=== PATIENT | male | born 1960 | race Caucasian/White ===

== ENCOUNTER 2018-11-13 18:30 | Emergency (ER) | payer BC ==
[~2018-11-13] VITALS: Ht 177.8 cm; Wt 128.8 kg
[~2018-11-13 18:30] MED LIST: Augmentin 500-1 EACH PO; Flonase 0.05% N16 GM; PSEU120ER PO; SULTRIDS PO; ZESTRIL40 MG PO
[2018-11-13 18:56] LABS: BASOPHILS ABSOLUTE AUTO 0.03 K/mm3 (0.00-0.23); BASOPHILS PERCENT AUTO 0 % (0-2); EOSINOPHILS PERCENT AUTO 0 % (0-6); Hematocrit 52.1 % (37.0-53.0); Hemoglobin 18.4 g/dL (13.5-17.5); IMMATURE GRAN ABSOLUTE AUTO 0.03 K/mm3 (0.00-0.10); IMMATURE GRAN PERCENT AUTO 0 % (0-1); LYMPHOCYTES ABSOLUTE AUTO 0.94 K/mm3 (0.84-5.20); LYMPHOCYTES PERCENT AUTO 11 % (21-46); MONOCYTES ABSOLUTE AUTO 0.86 K/mm3 (0.16-1.47); MONOCYTES PERCENT AUTO 10 % (4-13); Mean Corpuscular HGB 30.5 pg (26.0-34.0); Mean Corpuscular HGB Conc 35.3 g/dL (31.5-36.5); Mean Corpuscular Volume 86 fL (80-100); Mean Platelet Volume 8.8 fL (9.1-12.4); NEUTROPHILS ABSOLUTE AUTO 6.79 K/mm3 (1.96-9.15); NEUTROPHILS PERCENT AUTO 79 % (41-73); Platelet Count 190 K/mm3 (150-400); RDW Coefficient Variation 11.9 % (11.7-14.2); RDW Standard Deviation 37.7 fL (35.1-46.3); Red Blood Cell Count 6.04 M/mm3 (4.30-5.90); White Blood Cell Count 8.65 K/mm3 (4.00-11.30)
[2018-11-13 19:16] LABS: Alanine Aminotransfer (ALT/SGP 71 U/L (12-78); Albumin, Blood 3.2 g/dL (3.4-5.0); Albumin/Globulin Ratio 0.8 (0.8-1.8); Alk Phos 159 U/L (50-136); Anion Gap 10 mmol/L (6-16); Aspartate Aminotrans (AST/SGOT 46 U/L (12-37); Bilirubin, Total 0.8 mg/dL (0.1-1.0); Blood Urea Nitrogen 10 mg/dL (8-24); Bun/Creatinine Ratio 10.4 (12.0-20.0); CO2, Blood 24 mmol/L (21-32); Calcium, Blood 9.3 mg/dL (8.5-10.1); Chloride, Blood 100 mmol/L (98-108); Creatinine, Blood 0.96 mg/dL (0.60-1.20); Globulin, Blood 4.2 g/dL (2.2-4.0); Glomerular Filtration Rate >60 (60-); Glucose, Blood 135 mg/dL (70-99); Potassium, Blood 3.8 mmol/L (3.5-5.5); Sodium, Blood 134 mmol/L (136-145); Total Protein, Blood 7.4 g/dL (6.4-8.2)
[2018-11-13] MEDS ORDERED: AMLO5 PO (19:43)
[2018-11-13] MEDS ORDERED: Toprol Xl50 MG PO (19:43)
[2018-11-13] MEDS ORDERED: Augmentin 875-1 EACH PO (20:17)
[2018-11-13] MEDS ORDERED: Norco 5-325 Ta1 EACH PO (20:17)
[2018-11-13] MEDS ORDERED: Naprosyn500 MG PO (20:17)
== END 2018-11-13 20:48 | disposition home or self-care (01) ==
LOC: ER 18:30
PROVIDERS: Emergency Medicine
DX: K57.32 Diverticulitis of large intestine without perforation or abscess without bleeding (principal); I10 Essential (primary) hypertension; E78.5 Hyperlipidemia, unspecified; E66.9 Obesity, unspecified
CPT/HCPCS: 36415; 71046; 74176; 80053; 83690; 85025; 93005; 93010; 99284-25; A9270

== ENCOUNTER → 2021-08-27 | Outpatient (CLI) | payer SELFPAY ==
[~2021-08-27] MED LIST changes: +ACET325 PO; +AMLO5 PO; +Augmentin 875-1 EACH PO; +COLE625 PO; +METFORMIN HCL500 M3 PO; +Naprosyn500 MG PO; +Norco 5-325 Ta1 EACH PO; +Toprol Xl50 MG PO; +XARELTO20 MG PO
== END ==
LOC: LAB 13:52 → LAB SHORT 13:52
DX: E11.9 Type 2 diabetes mellitus without complications (principal)
CPT/HCPCS: 82043

== ENCOUNTER 2021-09-12 14:24 | Inpatient (IN) | payer BC ==
[~2021-09-12] VITALS: Ht 177.8 cm; Wt 124.3 kg
[~2021-09-12 14:24] MED LIST changes: -ACET325 PO; -COLE625 PO; -METFORMIN HCL500 M3 PO; -XARELTO20 MG PO
[2021-09-12 15:32] LABS: BASOPHILS ABSOLUTE AUTO 0.06 K/mm3 (0.00-0.23); BASOPHILS PERCENT AUTO 1 % (0-2); EOSINOPHILS ABSOLUTE AUTO 0.14 K/mm3 (0.00-0.68); EOSINOPHILS PERCENT AUTO 1 % (0-6); Hemoglobin 18.7 g/dL (13.5-17.5); IMMATURE GRAN ABSOLUTE AUTO 0.06 K/mm3 (0.00-0.10); IMMATURE GRAN PERCENT AUTO 1 % (0-1); LYMPHOCYTES ABSOLUTE AUTO 1.25 K/mm3 (0.84-5.20); LYMPHOCYTES PERCENT AUTO 13 % (21-46); MONOCYTES ABSOLUTE AUTO 0.59 K/mm3 (0.16-1.47); MONOCYTES PERCENT AUTO 6 % (4-13); Mean Corpuscular HGB 30.1 pg (26.0-34.0); Mean Corpuscular HGB Conc 35.3 g/dL (31.5-36.5); Mean Corpuscular Volume 85 fL (80-100); NEUTROPHILS ABSOLUTE AUTO 7.79 K/mm3 (1.96-9.15); NEUTROPHILS PERCENT AUTO 79 % (41-73); Platelet Count 186 K/mm3 (150-400); RDW Coefficient Variation 12.1 % (11.7-14.2); RDW Standard Deviation 37.5 fL (35.1-46.3); Red Blood Cell Count 6.21 M/mm3 (4.30-5.90); White Blood Cell Count 9.89 K/mm3 (4.00-11.30)
[2021-09-12 15:42] LABS: Alanine Aminotransfer (ALT/SGP 55 U/L (12-78); Albumin, Blood 3.6 g/dL (3.4-5.0); Albumin/Globulin Ratio 0.9 (0.8-1.8); Alk Phos 177 U/L (50-136); Anion Gap 8 mmol/L (6-16); Aspartate Aminotrans (AST/SGOT 30 U/L (12-37); Bilirubin, Total 0.7 mg/dL (0.1-1.0); Blood Urea Nitrogen 13 mg/dL (8-24); Bun/Creatinine Ratio 16.3 (12.0-20.0); CO2, Blood 24 mmol/L (21-32); Calcium, Blood 9.4 mg/dL (8.5-10.1); Chloride, Blood 106 mmol/L (98-108); Globulin, Blood 3.9 g/dL (2.2-4.0); Glomerular Filtration Rate >60 (60-); Glucose, Blood 216 mg/dL (70-99); Potassium, Blood 4.2 mmol/L (3.5-5.5); Sodium, Blood 138 mmol/L (136-145); Total Protein, Blood 7.5 g/dL (6.4-8.2)
[2021-09-12] MEDS ORDERED: COLE625 PO (19:43)
[2021-09-12] MEDS ORDERED: METFORMIN HCL500 M3 PO (20:05)
[2021-09-12 20:42] LABS: Anti-Xa UFH, PHA Monitoring <0.10 IU/mL; International Normalized Ratio 1.06; Prothrombin Time Results 11.1 Sec (9.7-11.5)
[2021-09-13 02:58] LABS: BASOPHILS ABSOLUTE AUTO 0.04 K/mm3 (0.00-0.23); BASOPHILS PERCENT AUTO 0 % (0-2); EOSINOPHILS ABSOLUTE AUTO 0.04 K/mm3 (0.00-0.68); EOSINOPHILS PERCENT AUTO 0 % (0-6); Hematocrit 52.1 % (37.0-53.0); IMMATURE GRAN ABSOLUTE AUTO 0.04 K/mm3 (0.00-0.10); IMMATURE GRAN PERCENT AUTO 0 % (0-1); LYMPHOCYTES ABSOLUTE AUTO 1.79 K/mm3 (0.84-5.20); LYMPHOCYTES PERCENT AUTO 17 % (21-46); MONOCYTES ABSOLUTE AUTO 0.62 K/mm3 (0.16-1.47); MONOCYTES PERCENT AUTO 6 % (4-13); Mean Corpuscular HGB 29.9 pg (26.0-34.0); Mean Corpuscular HGB Conc 34.5 g/dL (31.5-36.5); Mean Corpuscular Volume 87 fL (80-100); Mean Platelet Volume 8.6 fL (9.1-12.4); NEUTROPHILS ABSOLUTE AUTO 7.99 K/mm3 (1.96-9.15); NEUTROPHILS PERCENT AUTO 76 % (41-73); Platelet Count 179 K/mm3 (150-400); RDW Coefficient Variation 12.2 % (11.7-14.2); RDW Standard Deviation 38.5 fL (35.1-46.3); Red Blood Cell Count 6.02 M/mm3 (4.30-5.90); White Blood Cell Count 10.52 K/mm3 (4.00-11.30)
[2021-09-13 03:15] LABS: Alanine Aminotransfer (ALT/SGP 46 U/L (12-78); Albumin, Blood 3.4 g/dL (3.4-5.0); Albumin/Globulin Ratio 0.9 (0.8-1.8); Alk Phos 144 U/L (50-136); Anion Gap 8 mmol/L (6-16); Aspartate Aminotrans (AST/SGOT 24 U/L (12-37); Bilirubin, Total 0.9 mg/dL (0.1-1.0); Blood Urea Nitrogen 11 mg/dL (8-24); Bun/Creatinine Ratio 13.6 (12.0-20.0); CO2, Blood 25 mmol/L (21-32); Calcium, Blood 9.4 mg/dL (8.5-10.1); Chloride, Blood 104 mmol/L (98-108); Creatinine, Blood 0.81 mg/dL (0.60-1.20); Globulin, Blood 3.7 g/dL (2.2-4.0); Glomerular Filtration Rate >60 (60-); Glucose, Blood 164 mg/dL (70-99); Potassium, Blood 4.1 mmol/L (3.5-5.5); Sodium, Blood 137 mmol/L (136-145); Total Protein, Blood 7.1 g/dL (6.4-8.2)
--- NOTE | 2021-09-13 13:08 | NUR ---
PT ARRIVED FROM ER TO ICU 14 AT 1143 FOR PE/DVT. PT AWAKE AND OX3. PT DENIED C/O PAIN, DENIED SOB. PT DID HAVE SOME MILD LABORED BREATHING WHEN HE TRANSFERED FROM [facility] TO BED. SATS STABLE, 99% ON RA, LUNGS CLEAR T/O. PT HYPERTENSIVE. PT ON HEPARIN GTT AT 18UNITS/KG/HR (95KG,34.2ML/HR). PT'S RIGHT CALF IS SLIGHTLY SWOLLEN BUT NON TENDER. DR WOODS AT BEDSIDE NOW.
--- NOTE | 2021-09-13 16:31 | NUR ---
PT COMFORTABLE RESTING IN BED, VISITING WITH , DENIES COMPLAINTS. NO CHANGE TO HEPARIN GTT. ASSESSMENT UNCHANGED.
--- NOTE | 2021-09-13 21:49 | NUR ---
ASSUMED CARE @1900 PT IS RESTING COMFORTABLY. PT IS A&O X4. SPO2 96% ON ROOM AIR. PERIPHERAL IV IN R HAND. HEPARIN DRIP INFUSING @18U/KG/HR. PT DENIES CHEST PAIN OR SOB. PT DOES HAVE DYSPNEA ON EXERTION. PT COMPLAINS OF RIGHT CALF PAIN THAT IS A LITTLE WORSE THAN EARLIER. PT IS ABLE TO AMBULATE TO URINAL. SEE FULL ASSESSMENT.
--- NOTE | 2021-09-14 02:31 | NUR ---
PT AMBULATED TO URINAL. DENIES SOB/CHEST PAIN/DIZZINESS. PT STATES CALF PAIN IS BETTER. PT BACK TO BED AND RESTING COMFORTABLY.
--- NOTE | 2021-09-14 04:36 | NUR ---
PT AMBULATED TO URINAL. DENIES SOB/CHEST PAIN/DIZZINESS. ASSESSMENT REMAINS UNCHANGED. PT STATES HE IS GETTING REST.
--- NOTE | 2021-09-14 05:55 | NUR ---
END OF SHIFT SUMMARY PT REPORTED NO CHANGES THROUGH THE NIGHT. PT STATES SLEPT WELL. WOKE MULTIPLE TIMES TO VOID W/1 PERSON STANDBY ASSIST. PT REPORTS NO INCREASE IN PAIN IN HIS CALF. NO SOB OR DYSPNEA. SPO2 >96 ON RA. RR 18-22. IV IN R HAND PATENT. HEPARIN INFUSING @18U/KG/HR. SBP 130-160S. HR 60-90S. CALL LIGHT WITHIN REACH AND USES APPROPRIATELY. WILL CONTINUE TO MONITOR AND REPORT TO ONCOMING RN.
--- NOTE | 2021-09-14 07:25 | NUR ---
TOOK OVER CARE OF PT A 0700, PT RESTING ON RA, HEPARIN DRIP RUNNING AT 18UNITS/HR
[2021-09-14 08:51] LABS: Hematocrit 54.2 % (37.0-53.0); Hemoglobin 18.8 g/dL (13.5-17.5); Mean Corpuscular HGB Conc 34.7 g/dL (31.5-36.5); Mean Corpuscular Volume 87 fL (80-100); Mean Platelet Volume 8.8 fL (9.1-12.4); Platelet Count 169 K/mm3 (150-400); RDW Coefficient Variation 11.9 % (11.7-14.2); Red Blood Cell Count 6.26 M/mm3 (4.30-5.90); White Blood Cell Count 8.96 K/mm3 (4.00-11.30)
--- NOTE | 2021-09-14 18:18 | NUR ---
SUMMARY NEURO; WNL CARDIAC; NSR, DISTANT HEART TONES. NO CO OF CHEST PAIN LUNGS; ON RA, DIMINISHED, NO CO OF SOB SKIN; WNL GI;WNL ;WNL PAIN IN RT LEG- CONSTANT BUT DECREASING
--- NOTE | 2021-09-14 20:14 | NUR ---
ASSUMED CARE OF PT @1900 PT IS RESTING COMFORTABLY IN BED. ON RA SPO2@94%. HEPARIN INFUSING @18U/KG/HR THROUGH PERIPHERAL IV IN R HAND. PT DENIES CHEST PAIN/SOB. RIGHT CALF AND LEG STILL PAINFUL BUT BETTER AFTER LAST PO TYLENOL. SEE FULL ASSESSMENT.
--- NOTE | 2021-09-14 20:39 | NUR ---
PT AMBULATED TO URINAL. DENIES SOB/CHEST PAIN/DIZZINESS. RESTING COMFORTABLY
--- NOTE | 2021-09-14 23:51 | NUR ---
PT AMBULATED TO URINAL. PT DENIES CHEST PAIN/SOB/DIZZINESS. RESTING COMFORTABLY.
--- NOTE | 2021-09-15 03:35 | NUR ---
PT AMBULATED TO URINAL. DENIES SOB/CHEST PAIN/DIZZINESS. PT REPOSITIONS HIMESELF.
--- NOTE | 2021-09-15 05:47 | NUR ---
END OF SHIFT SUMMARY PT RESTED COMFORTABLY THROUGH THE NIGHT ON RA. AMBULATES TO URINAL AND REPOSITIONS SELF IN BED. USES CALL LIGHT APPROPRIATELY. HEPARIN INFUSING @20u/kg/hr. WILL CONTINUE TO MONITOR AND REPORT TO ONCOMING RN
[2021-09-15 06:25] LABS: Hematocrit 52.2 % (37.0-53.0); Hemoglobin 17.7 g/dL (13.5-17.5); Mean Corpuscular HGB 29.7 pg (26.0-34.0); Mean Corpuscular HGB Conc 33.9 g/dL (31.5-36.5); Mean Corpuscular Volume 88 fL (80-100); Mean Platelet Volume 9.1 fL (9.1-12.4); Platelet Count 165 K/mm3 (150-400); RDW Standard Deviation 38.2 fL (35.1-46.3); Red Blood Cell Count 5.95 M/mm3 (4.30-5.90); White Blood Cell Count 9.57 K/mm3 (4.00-11.30)
--- NOTE | 2021-09-15 09:31 | NUR ---
DR WOODS ROUNDING ON PATIENT NOW, PATIENT TO BE DISCAHRGED
[2021-09-15] MEDS ORDERED: ACET325 PO (09:46)
[2021-09-15] MEDS ORDERED: XARELTO20 MG PO ×2 (09:48→09:49)
--- NOTE | 2021-09-15 10:57 | NUR ---
PATIENT DISCHARGED HOME, DISCHARGE INSTRUCTION FOR XARELTO, DIET AND FOLLOW UP WITH PRIMARY DOCTOR GIVEN TO PATIENT, DAUGHTER, AND AT BEDSIDE. PATIENT STATED UNDERSTANDING OF THE INFORMATION AND INSTRUCTIONS, XARELTO COUPONS GIVEN TO HEMALATHAN PER DR WOODS. DENIED COMPLAINTS OR CONCERNS AND PATIENT WAS DISCHARGE VIA W/C TO DRIVING A VEHICLE
== END 2021-09-15 10:29 | disposition home or self-care (01) | DRG 299 ==
LOC: ER 14:24 → ERHOLD 20:37 → ICUW 09-13 11:53
PROVIDERS: Emergency Medicine; Family Medicine; Internal Medicine; Physician Assistant; ADMIT Internal Medicine
DX: I82.431 Acute embolism and thrombosis of right popliteal vein (principal); I26.99 Other pulmonary embolism without acute cor pulmonale; Z68.41 Body mass index [BMI] 40.0-44.9, adult; I82.451 Acute embolism and thrombosis of right peroneal vein; I82.441 Acute embolism and thrombosis of right tibial vein; E66.01 Morbid (severe) obesity due to excess calories; D75.1 Secondary polycythemia; I11.9 Hypertensive heart disease without heart failure; E78.5 Hyperlipidemia, unspecified; Z90.89 Acquired absence of other organs; Z79.84 Long term (current) use of oral hypoglycemic drugs; Z79.899 Other long term (current) drug therapy
CPT/HCPCS: 36415; 71260; 80053; 82947; 85025; 85027; 85520; 85610; 85730; 93005; 93010; 93306; 93971; 96374-59; 99285-25; A9270; J1644; Q9967

== ENCOUNTER → 2021-09-17 | Outpatient (CLI) | payer BC ==
[~2021-09-17] MED LIST changes: +ACET325 PO; +COLE625 PO; +METFORMIN HCL500 M3 PO; +XARELTO20 MG PO
== END | disposition home or self-care (01) ==
LOC: LAB SHORT 17:31
DX: Z12.5 Encounter for screening for malignant neoplasm of prostate (principal)
CPT/HCPCS: G0103

== ENCOUNTER 2022-01-22 12:15 | Day surgery (SDC) | payer OTHER ==
[~2022-01-22] VITALS: Ht 180.3 cm; Wt 122.4 kg
--- NOTE | 2022-01-22 13:47 | NUR ---
01/22/22 Fernie7 Elian Shaffer 10ML NS USED TO ELEVATE CECAL POLYP
== END 2022-01-22 15:08 | disposition home or self-care (01) ==
LOC: ORSCSDS 12:15
PROVIDERS: Student in an Organized Health Care Education/Training Program
PROC: 0DBL8ZX Excision of Transverse Colon, Via Natural or Artificial Opening Endoscopic, Diagnostic (ICD-10-PCS; principal; 2022-01-22 13:30)
PROC: 0DBN8ZX Excision of Sigmoid Colon, Via Natural or Artificial Opening Endoscopic, Diagnostic (ICD-10-PCS; principal; 2022-01-22 13:30)
PROC: 0DBH8ZX Excision of Cecum, Via Natural or Artificial Opening Endoscopic, Diagnostic (ICD-10-PCS; principal; 2022-01-22 13:30)
PROC: 3E0H8KZ Introduction of Other Diagnostic Substance into Lower GI, Via Natural or Artificial Opening Endoscopic (ICD-10-PCS; principal; 2022-01-22 13:30)
PROC: 0DBM8ZX Excision of Descending Colon, Via Natural or Artificial Opening Endoscopic, Diagnostic (ICD-10-PCS; principal; 2022-01-22 13:30)
PROC: 0DBK8ZX Excision of Ascending Colon, Via Natural or Artificial Opening Endoscopic, Diagnostic (ICD-10-PCS; principal; 2022-01-22 13:30)
DX: K62.5 Hemorrhage of anus and rectum (principal); D12.3 Benign neoplasm of transverse colon; D12.8 Benign neoplasm of rectum; D12.2 Benign neoplasm of ascending colon; D12.4 Benign neoplasm of descending colon; K63.5 Polyp of colon; K57.30 Diverticulosis of large intestine without perforation or abscess without bleeding; K64.8 Other hemorrhoids; K64.4 Residual hemorrhoidal skin tags; I10 Essential (primary) hypertension; E78.5 Hyperlipidemia, unspecified; E11.9 Type 2 diabetes mellitus without complications; G47.33 Obstructive sleep apnea (adult) (pediatric); E66.9 Obesity, unspecified; Z68.37 Body mass index [BMI] 37.0-37.9, adult; Z79.84 Long term (current) use of oral hypoglycemic drugs; Z79.899 Other long term (current) drug therapy; Z79.01 Long term (current) use of anticoagulants
CPT/HCPCS: 82947; 88305; J2370; J2704; J7120

== ENCOUNTER → 2022-04-10 | Outpatient (CLI) | payer OTHER | END | disposition home or self-care (01) | DX: D75.1 Secondary polycythemia (principal) ==

== ENCOUNTER → 2023-07-15 | Outpatient (CLI) | payer OTHER ==
[2023-07-15 19:35] LABS: Percent Saturation 34.7 % (20.0-50.0)
[2023-07-17 21:11] LABS: ERYTHROPOIETIN 8 mU/mL (4-27)
== END ==
LOC: LAB SHORT 18:08
PROVIDERS: Family Medicine
DX: D75.1 Secondary polycythemia (principal)
CPT/HCPCS: 82668; 82728; 83540; 83550

== ENCOUNTER 2024-03-23 07:49 | Day surgery (SDC) | payer OTHER ==
[~2024-03-23] VITALS: Ht 172.7 cm; Wt 126.6 kg
[~2024-03-23 07:49] MED LIST changes: +ATOR40TA PO; +Lactated Ringer's 1,000 ML IV SCH; +METF500 PO; +propofoL 40 ML IV ONE
[2024-03-23 08:17] VITALS: BP 160/94
--- NOTE | 2024-03-23 09:15 | NUR ---
03/23/24 0915 Rigo Myers History, Chart, Medications and Allergies reviewed before start of procedure.MONITOR INTACT WITH CONTINUOUS PULSE OXIMETRY, CONTINUOUS END TITAL CO2, AND INTERMITTENT BLOOD PRESSURE.3-LEAD EKG REVIEWED WITH PHYSICIAN PRIOR TO START OF PROCEDURE.O2 VIA POM INTACT THROUGHOUT SEDATION/PROCEDURE.See Anesthesia record.
[2024-03-23 09:35] VITALS: BP 128/80
[2024-03-23 09:46] VITALS: BP 134/88
--- NOTE | 2024-03-23 09:48 | NUR ---
PT DECLINES PO FLUIDS. Discharge instructions reviewed with patient. Patient verbalizes understanding. Copy given to patient to take home. Patient States Post-Procedure ride home has been arranged.
--- NOTE | 2024-03-23 09:56 | NUR ---
Patient up to Ambulate independently. Gait steady. Discharged via wheelchair to private car for ride home.
== END 2024-03-23 09:57 | disposition home or self-care (01) ==
LOC: ORSCMMR 07:49 → ORD 09:00 → ORSCMMR 09:00
PROVIDERS: Internal Medicine Gastroenterology
PROC: 0DBK8ZX Excision of Ascending Colon, Via Natural or Artificial Opening Endoscopic, Diagnostic (ICD-10-PCS; principal; 2024-03-23 09:00)
PROC: 0DBL8ZX Excision of Transverse Colon, Via Natural or Artificial Opening Endoscopic, Diagnostic (ICD-10-PCS; principal; 2024-03-23 09:00)
PROC: 0DBN8ZX Excision of Sigmoid Colon, Via Natural or Artificial Opening Endoscopic, Diagnostic (ICD-10-PCS; principal; 2024-03-23 09:00)
DX: D12.0 Benign neoplasm of cecum (principal); K62.5 Hemorrhage of anus and rectum; K63.5 Polyp of colon; Z86.0101 Personal history of adenomatous and serrated colon polyps; K57.30 Diverticulosis of large intestine without perforation or abscess without bleeding; E11.9 Type 2 diabetes mellitus without complications; I10 Essential (primary) hypertension; Z86.711 Personal history of pulmonary embolism; E78.00 Pure hypercholesterolemia, unspecified; E66.01 Morbid (severe) obesity due to excess calories; Z68.41 Body mass index [BMI] 40.0-44.9, adult; Z79.84 Long term (current) use of oral hypoglycemic drugs; Z79.01 Long term (current) use of anticoagulants; Z79.899 Other long term (current) drug therapy
CPT/HCPCS: 82947; 88305; J2704; J7120

== ENCOUNTER → 2024-04-07 | Outpatient (CLI) | payer OTHER ==
[~2024-04-07] MED LIST changes: -Lactated Ringer's 1,000 ML IV SCH; -propofoL 40 ML IV ONE
== END ==
LOC: LAB 13:25 → LAB SHORT 13:25
DX: E11.9 Type 2 diabetes mellitus without complications (principal)
CPT/HCPCS: 82043